=== PATIENT | male | born 1985 | race Caucasian/White ===

== ENCOUNTER 2018-04-23 19:52 | Emergency (ER) | payer SELFPAY ==
--- NOTE | 2018-04-23 20:06 | C.PDOC ---
History Of Present Illness 32 year old male presents to the emergency department with complaints of RLQ pain for the last five days. Patient describes the pain as intermittent and localized. Patient has a negative past surgical history. He denies fever, but reports mild nausea with normal bowel movements. NPO since 1pm. Time Seen by Provider: 04/23/18 20:05 Chief Complaint (Nursing): Abdominal Pain History Per: Patient History/Exam Limitations: no limitations Onset/Duration Of Symptoms: Days Current Symptoms Are (Timing): Still Present Location Of Pain/Discomfort: RLQ Quality Of Discomfort: "Pain" Associated Symptoms: Nausea. denies: Fever Past Medical History Reviewed: Historical Data, Nursing Documentation, Vital Signs Vital Signs: Last Vital Signs Temp 98.5 F 04/23/18 21:43 Pulse 77 04/23/18 21:43 Resp 16 04/23/18 21:43 BP 127/78 04/23/18 21:43 Pulse Ox 99 04/23/18 21:43 - Medical History PMH: No Chronic Diseases Surgical History: No Surg Hx Family History: States: No Known Family Hx - Social History Hx Alcohol Use: Yes Hx Substance Use: No - Immunization History Hx Tetanus Toxoid Vaccination: No Hx Influenza Vaccination: No Hx Pneumococcal Vaccination: No Review Of Systems Except As Marked, All Systems Reviewed And Found Negative. Constitutional: Negative for: Fever Gastrointestinal: Positive for: Nausea, Abdominal Pain Physical Exam - Physical Exam Appears: Non-toxic, No Acute Distress Skin: Warm, Dry Head: Atraumatic, Normacephalic Eye(s): bilateral: Normal Inspection Nose: Normal Neck: Normal, Supple Chest: Symmetrical Cardiovascular: Rhythm Regular, No Murmur Respiratory: Normal Breath Sounds, No Rales, No Rhonchi, No Wheezing Gastrointestinal/Abdominal: Soft, Tenderness (RLQ), No Guarding, No Rebound Neurological/Psych: Oriented x3, Normal Speech, Normal Cognition ED Course And Treatment - Laboratory Results Result Diagrams: 04/23/18 20:21 04/23/18 20:21 O2 Sat by Pulse Oximetry: 98 (RA) Pulse Ox Interpretation: Normal Progress Note: Plan: CT Abdomen and Pelvis. CMP. Lipase. Morphine 2mg IVP. NaCl IV Fluids. Zofran 4mg IVP. Urinalysis Reevaluation Time: 22:44 Reassessment Condition: Improved (COMFORTABLE NAD. ABD NEG. NO SIGNS ACUTE ABD. CT REPORT REVIEWED) Disposition Counseled Patient/Family Regarding: Studies Performed, Diagnosis, Need For Followup - Disposition Referrals: [facility] [Outside] [facility] [Outside] Disposition: HOME/ ROUTINE Disposition Time: 22:44 Condition: IMPROVED Instructions: Acute Abdomen (Belly Pain), Adult (DC) Forms: [employer] (Mongolian) Print Language: MALTESE - Clinical Impression Clinical Impression: Abdominal pain - Scribe Statement The provider has reviewed the documentation as recorded by the Scribe (Boby Gonzáles) Provider Attestation: All medical record entries made by the Scribe were at my direction and personally dictated by me. I have reviewed the chart and agree that the record accurately reflects my personal performance of the history, physical exam, medical decision making, and the department course for this patient. I have also personally directed, reviewed, and agree with the discharge instructions and disposition.
[2018-04-23] MEDS ORDERED: Sodium Chloride 0.9% 1,000 ML IV ONE (20:13)
[2018-04-23] MEDS ORDERED: Sodium Chloride 0.9% 1,000 ML ONE (20:20)
[2018-04-23 20:24] LABS: BASO # 0.1 K/uL (0.0-0.2); BASO % 0.7 % (0.0-2.0); EOS # 0.2 K/uL (0.0-0.7); EOS % 2.7 % (0.0-4.0); HEMOGLOBIN 15.7 g/dL (12.0-18.0); LYMPH # 3.7 K/uL (1.0-4.3); LYMPH % 41.6 % (20.0-40.0); MEAN CELL VOLUME 87.6 fL (80.0-94.0); MEAN CORPUSCULAR HEMOGLOBIN 29.8 pg (27.0-31.0); MEAN PLATELET VOLUME 8.3 fL (7.2-11.7); MONO # 1.2 K/uL (0.0-0.8); MONO % 13.4 % (0.0-10.0); NEUT # 3.7 K/uL (1.8-7.0); NEUT % 41.6 % (50.0-75.0); NRBC % 0.1 % (0.0-2.0); RBC 5.27 Mil/uL (4.40-5.90); RED CELL DISTRIBUTION WIDTH 13.2 % (11.5-14.5); WHITE BLOOD COUNT 8.8 K/uL (4.8-10.8)
[2018-04-23 20:35] LABS: SQUAMOUS EPITHIAL < 1 /hpf (0-5); URINE BILIRUBIN NEGATIVE (NEGATIVE); URINE CLARITY Clear (Clear); URINE COLOR Yellow (YELLOW); URINE GLUCOSE (UA) NORMAL (Normal); URINE LEUKOCYTE ESTERASE NEG Leu/uL (Negative); URINE PROTEIN NEGATIVE (NEGATIVE)
[2018-04-23 20:36] LABS: ALB/GLOB RATIO 1.3 (1.0-2.1); ALBUMIN 4.5 g/dL (3.5-5.0); ALT/SGPT 59 U/L (21-72); AST/SGOT 34 U/L (17-59); BLOOD UREA NITROGEN 12 mg/dL (9-20); GFR NON-AFRICAN AMERICAN > 60; LIPASE 93 U/L (23-300)
[2018-04-23 20:38] LABS: URINE BLOOD SMALL (NEGATIVE)
[2018-04-23] MEDS ORDERED: Iodixanol 320 MG/ML 100 ML BOTTLE IV ONE (20:38)
[2018-04-23 22:59] VITALS: BP 126/81; PULSE 72; RESP 18; TEMP 97.9; O2SAT 96
--- NOTE | 2018-04-24 08:46 | CT ---
Date of service: 04/23/2018 PROCEDURE: CT Abdomen and Pelvis with intravenous contrast HISTORY: Abdominal pain COMPARISON: None. TECHNIQUE: Multiple contiguous axial images were performed through the abdomen and pelvis with the use of intravenous contrast. Subsequently, sagittal and coronal reformatted images were obtained. Radiation dose: Total exam DLP = 1334 mGy-cm. This CT exam was performed using one or more of the following dose reduction techniques: Automated exposure control, adjustment of the mA and/or kV according to patient size, and/or use of iterative reconstruction technique. FINDINGS: LOWER THORAX: Mild atelectasis and scarring at the lung bases. LIVER: Fatty infiltration of the liver. GALLBLADDER AND BILE DUCTS: Unremarkable. PANCREAS: Unremarkable. No gross lesion or ductal dilatation. SPLEEN: Unremarkable. ADRENALS: Unremarkable. No mass. KIDNEYS AND URETERS: 1.2 x 1.5 x 1.2 centimeter slightly heterogeneous predominantly hypodense within the right kidney. This measures a Hounsfield unit attenuation of 37, indeterminate. Additional punctate hypodensity in the midpole of the right kidney, too small to adequately characterize. VASCULATURE: Unremarkable. No aortic aneurysm. BOWEL: Focal stranding within fat along the border of the ascending colon adjacent to a lobulated fat containing foci at the lateral margin of the mid ascending colon measuring 2.3 centimeters. APPENDIX: Unremarkable. Normal appendix. PERITONEUM: Unremarkable. No free fluid. No free air. LYMPH NODES: Several subcentimeter short axis mesenteric lymph nodes. BLADDER: Unremarkable. REPRODUCTIVE: Unremarkable. BONES: No acute fracture. OTHER FINDINGS: Small fat containing umbilical hernia. IMPRESSION: Findings concerning for epiploic appendagitis of the ascending colon. Indeterminate right renal lesion. Correlation with multiphasic contrast enhanced CT or MR would be helpful for further evaluation if clinically indicated. Additional findings as above. These findings were preliminarily reported at 10:39 p.m. on 04/23/[address] Dimitri Parker from [employer].
== END 2018-04-23 22:58 | disposition home or self-care (01) ==
LOC: C.ER 19:52
DX: R10.31 Right lower quadrant pain (principal)
CPT/HCPCS: 74177; 80053; 81001; 83690; 85025; 99285; J7030; Q9967